=== PATIENT | female | born 1955 | race Caucasian/White ===

== ENCOUNTER 2020-07-25 07:06 | Inpatient (IN) | payer OTHER ==
[~2020-07-25] VITALS: Ht 167.6 cm; Wt 122.0 kg
[~2020-07-25 07:06] MED LIST: ALLO300; DULO60; FURO80; GABA300; GLYB1.5; LIRA0.6P; METF500C; PROP80ER PO; SIMV40
[2020-07-25 07:45] LABS: Calcium, Ionized (POC) 1.11 mmol/L (1.10-1.46); Chloride (POC) 100 mmol/L (98-108); Creatinine (POC) 1.3 mg/dL (0.6-1.0); Glucose (ISTAT POC) 333 mg/dL (70-99); Hemoglobin (POC) 13.9 g/dL (12.0-16.0); Potassium (POC) 6.1 mmol/L (3.5-5.5); Sodium (POC) 138 mmol/L (135-148); Total CO2 (POC) 22 mmol/L (21-32)
[2020-07-25 07:51] LABS: BASOPHILS ABSOLUTE AUTO 0.05 K/mm3 (0.00-0.23); BASOPHILS PERCENT AUTO 0 % (0-2); EOSINOPHILS ABSOLUTE AUTO 0.22 K/mm3 (0.00-0.68); EOSINOPHILS PERCENT AUTO 1 % (0-6); IMMATURE GRAN ABSOLUTE AUTO 0.14 K/mm3 (0.00-0.10); IMMATURE GRAN PERCENT AUTO 1 % (0-1); LYMPHOCYTES ABSOLUTE AUTO 5.34 K/mm3 (0.84-5.20); LYMPHOCYTES PERCENT AUTO 27 % (21-46); MONOCYTES PERCENT AUTO 4 % (4-13); Mean Corpuscular HGB 31.3 pg (26.0-34.0); Mean Corpuscular HGB Conc 30.8 g/dL (31.5-36.5); Mean Corpuscular Volume 102 fL (80-100); Mean Platelet Volume 11.5 fL (9.1-12.4); NEUTROPHILS ABSOLUTE AUTO 13.66 K/mm3 (1.96-9.15); NEUTROPHILS PERCENT AUTO 68 % (41-73); NRBC ABSOLUTE 0.02 K/mm3 (0.00-0.02); NRBC Auto 0.1 /100 WBC (0.0-0.2); Platelet Count 272 K/mm3 (150-400); RDW Coefficient Variation 14.6 % (11.7-14.2); Red Blood Cell Count 3.83 M/mm3 (3.80-5.20); White Blood Cell Count 20.11 K/mm3 (4.00-11.30)
[2020-07-25 08:19] LABS: Albumin, Blood 3.4 g/dL (3.4-5.0); Albumin/Globulin Ratio 0.7 (0.8-1.8); Bilirubin, Total 0.5 mg/dL (0.1-1.0); Bun/Creatinine Ratio 32.5 (12.0-20.0); Calcium, Blood 9.3 mg/dL (8.5-10.1); Creatinine, Blood 1.14 mg/dL (0.40-1.00); Globulin, Blood 4.7 g/dL (2.2-4.0); Potassium, Blood 6.1 mmol/L (3.5-5.5); Total Protein, Blood 8.1 g/dL (6.4-8.2)
[2020-07-25] MEDS ORDERED: OZEMPIC0.25 MG/0. SC (09:06)
[2020-07-25] MEDS ORDERED: CYCL10 PO (09:10)
[2020-07-25 14:17] LABS: Bun/Creatinine Ratio 36.8 (12.0-20.0); Calcium, Blood 8.7 mg/dL (8.5-10.1); Creatinine, Blood 1.25 mg/dL (0.40-1.00); Potassium, Blood 6.2 mmol/L (3.5-5.5)
--- NOTE | 2020-07-25 14:36 | NUR ---
PT TRANSPORTED TO [facility]. UPON ARRIVAL TO DEPARTMENT, RN CALLED US ABOUT CRITICAL POTASSIUM LEVEL. DR. FLORES INFORMED WELL DR. MIN. PROCEDURE POSTPONED UNTIL TOMORROW.
[2020-07-25 16:47] LABS: Source, Urine Clean Catch
[2020-07-25 16:53] LABS: Appearance, Urine Hazy (Clear); Bilirubin, Urine Neg (Neg); Blood, Urine 1+ (Neg); Color, Urine Yellow (P-Yellow); Glucose Qualitative, Urine Neg (Neg); Ketones, Urine 2+ (Neg); Leukocyte Esterase, Urine 3+ (Neg); Nitrite, Urine Neg (Neg); Protein, Urine Neg (Neg); Urobilinogen, Urine NORM (Normal)
[2020-07-25 17:06] LABS: Hematocrit 30.3 % (33.0-51.0); Hemoglobin 9.7 g/dL (11.5-16.0)
[2020-07-25 17:09] LABS: Bacteria Mod /hpf; Red Blood Cells, Urine 0-2 /hpf (0-2); Squamous Epithelial Cells Few /hpf (Few)
--- NOTE | 2020-07-25 17:33 | NUR ---
SHIFT SUMMARY 1225 PT ADMITTED TO 333 VIA GURNEY FROM ER. PT ABLE TO TX SELF TO BED WITH SBA. RECEIVED REPORT FROM JOEY ASCENCIO. PT ADMITTED FOR HEMATEMESIS. REPORTING VOMITING BRIGHT RED BLOOD AND CLOTS SIZE OF HALF DOLLAR. CBG WHEN ADMITTED > THAN 700. PT WITH TYPE II DM AND HTN. PER JOEY, PT ALSO HAD K+ LEVEL @ 6.1; MEDS GIVEN PER EMAR. PT LATER TX TO RM 333. DAY SX TO TO RECEIVE PT SHORTLY AFTER COMING TO MEDICAL FLOOR. WHEN GOING DOWN FOR EGD, LAB CALLED WITH CRITICAL K+ LEVEL @ 6.2. DAY SX NOTIFIED WELL DR MURRAY AND DR PELAYO. NEW ORDERS RECEIVED. PT RETURNED TO AND PROCEDURE DELAYED UNTIL TOMORROW. DR PELAYO HERE TO SEE PT AFTER RETURNING TO . PT INFORMED OF DELAY UNTIL TOMORROW. PT TO HAVE CL DIET TONIGHT AND NPO AFTER MN. MEDS AND TX HAVE BEEN GIVEN PER ORDERS. LAB HERE NOW FOR NEXT K+ LEVEL CK. TELE MX PLACED. RT HERE TO SET UP BIPAP FOR HS. PT UP TO BTHRM ORIGINALLY AND THEN BSC D/T LINES AND TUBING. PT RESTING QUIETLY AT THIS TIME. HAS BEEN ON PHONE OFF AND ON SINCE ADMISSION. CALL LT IN REACH. IVF'S AND PROTONIX DRIP INFUSING PER EMAR.
[2020-07-25 19:06] LABS: Bun/Creatinine Ratio 41.8 (12.0-20.0); Calcium, Blood 9.1 mg/dL (8.5-10.1); Creatinine, Blood 1.34 mg/dL (0.40-1.00); Potassium, Blood 5.8 mmol/L (3.5-5.5)
[2020-07-25 20:40] LABS: Hematocrit 31.1 % (33.0-51.0); Hemoglobin 9.7 g/dL (11.5-16.0)
[2020-07-26 01:05] LABS: Hematocrit 29.5 % (33.0-51.0); Hemoglobin 9.4 g/dL (11.5-16.0); Mean Corpuscular HGB 31.4 pg (26.0-34.0); Mean Corpuscular HGB Conc 31.9 g/dL (31.5-36.5); Mean Corpuscular Volume 99 fL (80-100); Mean Platelet Volume 10.7 fL (9.1-12.4); Platelet Count 240 K/mm3 (150-400); RDW Coefficient Variation 14.5 % (11.7-14.2); RDW Standard Deviation 50.8 fL (35.1-46.3); Red Blood Cell Count 2.99 M/mm3 (3.80-5.20); White Blood Cell Count 21.36 K/mm3 (4.00-11.30)
[2020-07-26 01:26] LABS: Albumin, Blood 3.2 g/dL (3.4-5.0); Albumin/Globulin Ratio 0.8 (0.8-1.8); Bilirubin, Total 0.5 mg/dL (0.1-1.0); Bun/Creatinine Ratio 51.5 (12.0-20.0); Calcium, Blood 9.2 mg/dL (8.5-10.1); Creatinine, Blood 1.36 mg/dL (0.40-1.00); Globulin, Blood 4.1 g/dL (2.2-4.0); Potassium, Blood 4.9 mmol/L (3.5-5.5); Total Protein, Blood 7.3 g/dL (6.4-8.2)
[2020-07-26 03:38] LABS: Hematocrit 27.8 % (33.0-51.0); Hemoglobin 8.8 g/dL (11.5-16.0)
--- NOTE | 2020-07-26 04:55 | NUR ---
WELDING ROD COATER SUMMARY PT HAS HAD CONTINUOUS LOOSE BLACK STOOLS THROUGHOUT THE NIGHT W ONLY ONE EPISODE OF EMESIS WHICH HAD MULTIPLE DARK BLOOD CLOTS IN IT. PT'S HBG WAS CHECKED AT 0130 AND WAS 9.4 HOWEVER A STAT H&H WAS ORDERED AFTER THE PROVIDER WAS CONTACTED DUE TO THE PT HAVING SEVERAL LARGE TARRY STOOLS IN 2 HOUR PERIOD. THE STAT H&H SHOWED A HGB OF 8.8. PT PLACED ON 1L NC AFTER O2 SATS WOULD NOT REMAIN >90 WHILE SHE WAS SLEEPING. PT IS VERY EMBARRESSED ABOUT HER INCONTINENCE AND WAS REASSURED IT IS A NORMAL PART OF HER DIAGNOSIS. PT IS CURRENTLY SLEEPING W CALL LIGHT WITHIN REACH.
--- NOTE | 2020-07-26 09:59 | NUR ---
PT TO SDS. AGREES WITH PLANNED PROCEDURE. PT SLEEPY. WAKES TO VOICE. ANSWERS APPROPRIATLY. C/O CHRONIC BACK PAIN.
--- NOTE | 2020-07-26 11:51 | NUR ---
07/26/20 1151 Jose Cruz Ta Bite Block PlacedSee Anesthesia record. Patient to ENDO 1. History, Chart, Medications and Allergies reviewed before start of procedure. MONITOR INTACT WITH CONTINUOUS PULSE OXIMETRY AND INTERMITTENT BP. O2 VIA N/C INTACT THROUGHOUT SEDATION/PROCEDURE.
--- NOTE | 2020-07-26 17:37 | NUR ---
PATIENT IS ALERT AND ORIENTED AND COOPERATIVE WITH CARE. DR. PELAYO PERFORMED AN EGD ON THE PATIENT THIS MORNING AND FOUND 2 ULCERS AND A GASTRIC POLYP WHICH WAS CLIPPED. THE PATIENT'S POST-OP VITALS ARE WNL. THE PATIENT IS UP TO THE BSC WITH 1PA. THE PATIENT'S WAS AT THE BEDSIDE FOR MOST OF THE DAY. DR. PELAYO INSTRUCTED THE PATIENT TO NOT TAKE NSAIDS. SHE IS TOLERATING A FULL LIQUID DIET WELL. WILL CONTINUE TO MONITOR
--- NOTE | 2020-07-27 04:08 | NUR ---
WIRE BASKET MAKER SUMMARY PT APPEARS TO BE DRAMATICALLY BETTER TONIGHT COMPARED TO PREVIOUS NIGHT SHE IS STRONGER ON HER FEET AND HAS HAD LESS NAUSEA AND ONLY TWO SMALL BOWEL MOVEMENTS THIS SHIFT. PT HAS SLEPT MOST OF THE NIGHT AND IS RESTING COMFORTABLY IN BED WITH CALL LIGHT WITHIN REACH.
[2020-07-27 05:07] LABS: BASOPHILS ABSOLUTE AUTO 0.03 K/mm3 (0.00-0.23); BASOPHILS PERCENT AUTO 0 % (0-2); EOSINOPHILS PERCENT AUTO 2 % (0-6); Hematocrit 25.3 % (33.0-51.0); Hemoglobin 7.7 g/dL (11.5-16.0); IMMATURE GRAN ABSOLUTE AUTO 0.02 K/mm3 (0.00-0.10); IMMATURE GRAN PERCENT AUTO 0 % (0-1); LYMPHOCYTES ABSOLUTE AUTO 4.78 K/mm3 (0.84-5.20); LYMPHOCYTES PERCENT AUTO 47 % (21-46); MONOCYTES ABSOLUTE AUTO 0.81 K/mm3 (0.16-1.47); MONOCYTES PERCENT AUTO 8 % (4-13); Mean Corpuscular HGB 31.3 pg (26.0-34.0); Mean Corpuscular HGB Conc 30.4 g/dL (31.5-36.5); Mean Corpuscular Volume 103 fL (80-100); Mean Platelet Volume 10.8 fL (9.1-12.4); NEUTROPHILS ABSOLUTE AUTO 4.35 K/mm3 (1.96-9.15); NEUTROPHILS PERCENT AUTO 43 % (41-73); Platelet Count 147 K/mm3 (150-400); RDW Standard Deviation 55.5 fL (35.1-46.3); Red Blood Cell Count 2.46 M/mm3 (3.80-5.20); White Blood Cell Count 10.19 K/mm3 (4.00-11.30)
[2020-07-27 05:35] LABS: Bun/Creatinine Ratio 42.1 (12.0-20.0); Potassium, Blood 4.3 mmol/L (3.5-5.5)
--- NOTE | 2020-07-27 07:57 | NUR ---
Pt gave this student nurse permission to provide care for on 07/27/2020.
[2020-07-27 11:16] LABS: Hematocrit 24.8 % (33.0-51.0); Hemoglobin 7.5 g/dL (11.5-16.0)
[2020-07-27] MEDS ORDERED: OMEP20ER PO (13:11)
[2020-07-27] MEDS ORDERED: FERRIC X-150150 M1 PO (13:12)
--- NOTE | 2020-07-27 14:45 | NUR ---
PT DISCHARGED PT DISCHARGED AT 1416. PT & EDUCATED ON NEW MEDS AND DC INSTRUCTIONS. PT INSTRUCTED TO HAVE FOLLOW UP LAB WORK COMPLETED IN 1-2 DAYS. BOTH STATED THEY UNDERSTOOD. PT WHEELED OUT BY VOLUNTEER AND DRIVED HOME BY FAMILY. NO CHANGES IN ASSESSMENT PRIOR TO DC.
== END 2020-07-27 14:16 | disposition home or self-care (01) | DRG 378 ==
LOC: ER 07:06 → MEDS 07:07 → ENPENDDIS 07-27 12:48 → MEDS 07-27 14:16
PROVIDERS: Emergency Medicine; Family Medicine; Hospitalist; Internal Medicine; Nurse Practitioner Acute Care; Student in an Organized Health Care Education/Training Program; ADMIT Hospitalist
PROC: 0DB68ZX Excision of Stomach, Via Natural or Artificial Opening Endoscopic, Diagnostic (ICD-10-PCS; principal; 2020-07-26 10:00)
PROC: 0W3P8ZZ Control Bleeding in Gastrointestinal Tract, Via Natural or Artificial Opening Endoscopic (ICD-10-PCS; 2020-07-26 10:00)
DX: K25.4 Chronic or unspecified gastric ulcer with hemorrhage (principal); Z68.41 Body mass index [BMI] 40.0-44.9, adult; E66.2 Morbid (severe) obesity with alveolar hypoventilation; R65.10 Systemic inflammatory response syndrome (SIRS) of non-infectious origin without acute organ dysfunction; D62 Acute posthemorrhagic anemia; Z79.84 Long term (current) use of oral hypoglycemic drugs; I10 Essential (primary) hypertension; E87.5 Hyperkalemia; Z98.84 Bariatric surgery status; E11.22 Type 2 diabetes mellitus with diabetic chronic kidney disease; J45.909 Unspecified asthma, uncomplicated; M54.9 Dorsalgia, unspecified; K44.9 Diaphragmatic hernia without obstruction or gangrene; Z66 Do not resuscitate; F32.9 Major depressive disorder, single episode, unspecified
CPT/HCPCS: 36415; 71045; 80047; 80048; 80053; 81001; 82947; 83880; 84484; 85014; 85018; 85025; 85027; 86850; 86900; 86901; 87077; 87086; 87186; 88305; 88341; 88342; 93005; 93010; 94660; 94762; 96374; 96375; 99285-25; A9270; A9270-GY; C9113; G0378; J0610; J1815; J1940; J2405; J2704; J7030; J7040; J7120; U0003

== ENCOUNTER 2020-07-31 02:01 | Day surgery (SDC) | payer OTHER ==
[~2020-07-31 02:01] MED LIST changes: +CYCL10 PO; +FERRIC X-150150 M1 PO; +OMEP20ER PO; +OZEMPIC0.25 MG/0. SC
[2020-07-31 12:32] LABS: Hematocrit 30.1 % (33.0-51.0); Hemoglobin 9.5 g/dL (11.5-16.0); Mean Corpuscular HGB 30.7 pg (26.0-34.0); Mean Corpuscular HGB Conc 31.6 g/dL (31.5-36.5); Mean Corpuscular Volume 97 fL (80-100); Mean Platelet Volume 10.1 fL (9.1-12.4); NRBC ABSOLUTE 0.12 K/mm3 (0.00-0.02); NRBC Auto 1.2 /100 WBC (0.0-0.2); Platelet Count 234 K/mm3 (150-400); RDW Coefficient Variation 17.5 % (11.7-14.2); RDW Standard Deviation 57.5 fL (35.1-46.3); Red Blood Cell Count 3.09 M/mm3 (3.80-5.20); White Blood Cell Count 10.09 K/mm3 (4.00-11.30)
== END 2020-07-31 12:25 | disposition home or self-care (01) ==
LOC: ATC 02:01
PROVIDERS: Physician Assistant Medical
DX: D62 Acute posthemorrhagic anemia (principal); E11.42 Type 2 diabetes mellitus with diabetic polyneuropathy; M48.061 Spinal stenosis, lumbar region without neurogenic claudication; E11.65 Type 2 diabetes mellitus with hyperglycemia; G89.4 Chronic pain syndrome; F32.9 Major depressive disorder, single episode, unspecified; M25.9 Joint disorder, unspecified; I10 Essential (primary) hypertension; G58.9 Mononeuropathy, unspecified; Z88.5 Allergy status to narcotic agent; Z79.899 Other long term (current) drug therapy; Z79.84 Long term (current) use of oral hypoglycemic drugs
CPT/HCPCS: 36415; 36430; 85027; 86850; 86900; 86901; 86923; P9016

== ENCOUNTER 2020-10-20 11:14 | Day surgery (SDC) | payer OTHER, SELFPAY ==
[~2020-10-20] VITALS: Ht 167.6 cm; Wt 121.7 kg
[2020-10-20] MEDS ORDERED: VICTOZA 2-0.6 MG/0.1 (11:39)
[2020-10-20] MEDS ORDERED: CODACE30 (11:39)
--- NOTE | 2020-10-20 11:52 | NUR ---
10/20/20 Rebekah Frost 1 TRY RIGHT HAND VALVE
== END 2020-10-20 13:10 | disposition home or self-care (01) ==
LOC: ORSCSDS 11:14
PROVIDERS: Student in an Organized Health Care Education/Training Program
PROC: 0DB58ZX Excision of Esophagus, Via Natural or Artificial Opening Endoscopic, Diagnostic (ICD-10-PCS; principal; 2020-10-20 12:15)
PROC: 0DB68ZX Excision of Stomach, Via Natural or Artificial Opening Endoscopic, Diagnostic (ICD-10-PCS; principal; 2020-10-20 12:15)
DX: Z87.11 Personal history of peptic ulcer disease (principal); K29.70 Gastritis, unspecified, without bleeding; K44.9 Diaphragmatic hernia without obstruction or gangrene; I10 Essential (primary) hypertension; G47.33 Obstructive sleep apnea (adult) (pediatric); E66.01 Morbid (severe) obesity due to excess calories; Z68.39 Body mass index [BMI] 39.0-39.9, adult; E11.9 Type 2 diabetes mellitus without complications; Z79.899 Other long term (current) drug therapy
CPT/HCPCS: 82947; 88305; 88341; 88342; J2704

== ENCOUNTER 2023-08-30 15:06 | Emergency (ER) | payer OTHER ==
[~2023-08-30] VITALS: Ht 167.6 cm; Wt 137.0 kg
[~2023-08-30 15:06] MED LIST changes: +CODACE30; +VICTOZA 2-0.6 MG/0.1
[2023-08-30 16:18] LABS: BASOPHILS ABSOLUTE AUTO 0.01 K/mm3 (0.00-0.23); BASOPHILS PERCENT AUTO 0 % (0-2); EOSINOPHILS ABSOLUTE AUTO 0.01 K/mm3 (0.00-0.68); EOSINOPHILS PERCENT AUTO 0 % (0-6); Hematocrit 43.2 % (33.0-51.0); Hemoglobin 14.1 g/dL (11.5-16.0); IMMATURE GRAN ABSOLUTE AUTO 0.01 K/mm3 (0.00-0.10); IMMATURE GRAN PERCENT AUTO 0 % (0-1); LYMPHOCYTES ABSOLUTE AUTO 1.37 K/mm3 (0.84-5.20); LYMPHOCYTES PERCENT AUTO 36 % (21-46); MONOCYTES ABSOLUTE AUTO 0.42 K/mm3 (0.16-1.47); MONOCYTES PERCENT AUTO 11 % (4-13); Mean Corpuscular HGB Conc 32.6 g/dL (31.5-36.5); Mean Corpuscular Volume 98 fL (80-100); Mean Platelet Volume 11.2 fL (9.1-12.4); NEUTROPHILS ABSOLUTE AUTO 2.02 K/mm3 (1.96-9.15); NEUTROPHILS PERCENT AUTO 53 % (41-73); Platelet Count 89 K/mm3 (150-400); RDW Coefficient Variation 14.3 % (11.7-14.2); RDW Standard Deviation 51.8 fL (35.1-46.3); White Blood Cell Count 3.84 K/mm3 (4.00-11.30)
[2023-08-30] MEDS ORDERED: FURO80 PO (17:10)
[2023-08-30] MEDS ORDERED: TOUJEO SOL300 UNIT/2 SQ (17:10)
[2023-08-30] MEDS ORDERED: POTA10T (17:11)
[2023-08-30] MEDS ORDERED: Simvastatin40 MG PO (17:11)
[2023-08-30] MEDS ORDERED: PANTOPRAZOLE SO40 M2 PO (17:11)
[2023-08-30 17:36] LABS: Albumin/Globulin Ratio 0.7 (0.8-1.8); Bilirubin, Total 0.6 mg/dL (0.1-1.0); Calcium, Blood 8.7 mg/dL (8.5-10.1); Creatinine, Blood 0.73 mg/dL (0.40-1.00); Globulin, Blood 4.5 g/dL (2.2-4.0); Potassium, Blood 4.3 mmol/L (3.5-5.5); Total Protein, Blood 7.5 g/dL (6.4-8.2)
[2023-08-30 18:49] LABS: Source, Urine Clean Catch
[2023-08-30 18:51] LABS: Appearance, Urine Clear (Clear); Bilirubin, Urine Neg (Neg); Blood, Urine 1+ (Neg); Color, Urine Yellow (P-Yellow); Glucose Qualitative, Urine Neg (Neg); Ketones, Urine Neg (Neg); Leukocyte Esterase, Urine Neg (Neg); Nitrite, Urine Neg (Neg); Protein, Urine 1+ (Neg); Urobilinogen, Urine 1+ (Normal)
[2023-08-30 19:06] LABS: Bacteria Rare /hpf; Red Blood Cells, Urine 0-2 /hpf (0-2); Squamous Epithelial Cells Rare /hpf (Few); White Blood Cells, Urine 0-2 /hpf (0-5)
[2023-08-30 19:25] LABS: Influenza A, PCR NEGATIVE (NEGATIVE); Influenza B, PCR NEGATIVE (NEGATIVE); Resp Syncytial Virus, PCR NEGATIVE (NEGATIVE)
[2023-08-30 19:40] LABS: SARS-Cov-2 (COVID-19) PCR, MMC POSITIVE (NEGATIVE)
[2023-08-30 20:22] LABS: Base Excess Venous 1.3 mmol/L; Bicarbonate Venous 25.9 mmol/L (24.0-30.0); PCO2 Venous 35.3 mmHg (38-42); pH Blood Venous 7.46 (7.34-7.37)
[2023-08-30 21:00] VITALS: BP 140/79
== END 2023-08-30 21:39 | disposition home or self-care (01) ==
LOC: ER 15:06
PROVIDERS: Emergency Medicine; Student in an Organized Health Care Education/Training Program
DX: U07.1 COVID-19 (principal); W18.30XA Fall on same level, unspecified, initial encounter; Z88.5 Allergy status to narcotic agent; Z88.8 Allergy status to other drugs, medicaments and biological substances; Z79.899 Other long term (current) drug therapy; Z79.4 Long term (current) use of insulin; G47.30 Sleep apnea, unspecified; J45.909 Unspecified asthma, uncomplicated; I10 Essential (primary) hypertension; E11.9 Type 2 diabetes mellitus without complications
CPT/HCPCS: 0241U; 71046; 72100; 80053; 81001; 82803; 83735; 83880; 84484; 85025; 93005; 93010; 96374; 99284-25; A9270; J1885

== ENCOUNTER 2024-04-14 14:47 | Emergency (ER) | payer OTHER ==
[~2024-04-14] VITALS: Ht 167.6 cm; Wt 120.7 kg
[~2024-04-14 14:47] MED LIST changes: +FURO80 PO; +PANTOPRAZOLE SO40 M2 PO; +POTA10T; +Simvastatin40 MG PO; +TOUJEO SOL300 UNIT/2 SQ
[2024-04-14] MEDS ORDERED: IBUP200 (15:16)
[2024-04-14] MEDS ORDERED: ACET325 (15:16)
[2024-04-14 17:59] VITALS: BP 176/94
[2024-04-14] MEDS ORDERED: RX Prepack 6 Tabs Oxycodone 5mg UD ONE (19:20)
== END 2024-04-14 20:35 | disposition home or self-care (01) ==
LOC: ER 14:47
DX: M48.56XA Collapsed vertebra, not elsewhere classified, lumbar region, initial encounter for fracture (principal); E11.40 Type 2 diabetes mellitus with diabetic neuropathy, unspecified; I10 Essential (primary) hypertension; J45.909 Unspecified asthma, uncomplicated; G47.30 Sleep apnea, unspecified; Z79.899 Other long term (current) drug therapy; Z88.5 Allergy status to narcotic agent; Z88.8 Allergy status to other drugs, medicaments and biological substances
CPT/HCPCS: 72070; 72100; 99284-25; A9270

== ENCOUNTER 2024-04-22 21:46 | Emergency (ER) | payer OTHER ==
[~2024-04-22] VITALS: Ht 167.6 cm; Wt 118.8 kg
[~2024-04-22 21:46] MED LIST changes: +ACET325; +IBUP200
[2024-04-22] MEDS ORDERED: Pantoprazole Sodium 40 MG in NS 50 ML IV SCH (22:15)
[2024-04-22] MEDS ORDERED: Pantoprazole Sodium 40 MG Injection IV ONE (22:15)
[2024-04-22 22:18] LABS: BASOPHILS ABSOLUTE AUTO 0.03 K/mm3 (0.00-0.23); BASOPHILS PERCENT AUTO 0 % (0-2); EOSINOPHILS ABSOLUTE AUTO 0.16 K/mm3 (0.00-0.68); EOSINOPHILS PERCENT AUTO 2 % (0-6); Hematocrit 33.3 % (33.0-51.0); Hemoglobin 11.1 g/dL (11.5-16.0); IMMATURE GRAN ABSOLUTE AUTO 0.03 K/mm3 (0.00-0.10); IMMATURE GRAN PERCENT AUTO 0 % (0-1); LYMPHOCYTES ABSOLUTE AUTO 3.07 K/mm3 (0.84-5.20); LYMPHOCYTES PERCENT AUTO 29 % (21-46); MONOCYTES ABSOLUTE AUTO 0.79 K/mm3 (0.16-1.47); MONOCYTES PERCENT AUTO 7 % (4-13); Mean Corpuscular HGB 31.6 pg (26.0-34.0); Mean Corpuscular HGB Conc 33.3 g/dL (31.5-36.5); Mean Corpuscular Volume 95 fL (80-100); Mean Platelet Volume 10.2 fL (9.1-12.4); NEUTROPHILS ABSOLUTE AUTO 6.57 K/mm3 (1.96-9.15); NEUTROPHILS PERCENT AUTO 62 % (41-73); Platelet Count 206 K/mm3 (150-400); RDW Coefficient Variation 13.2 % (11.7-14.2); RDW Standard Deviation 45.7 fL (35.1-46.3); Red Blood Cell Count 3.51 M/mm3 (3.80-5.20); White Blood Cell Count 10.65 K/mm3 (4.00-11.30)
[2024-04-22 22:30] LABS: Chloride (POC) 113 mmol/L (98-108); Creatinine (POC) 0.9 mg/dL (0.6-1.0); Glucose (ISTAT POC) 304 mg/dL (70-99); Hemoglobin (POC) 11.2 g/dL (12.0-16.0); Potassium (POC) 4.9 mmol/L (3.5-5.5); Sodium (POC) 144 mmol/L (135-148); Total CO2 (POC) 21 mmol/L (21-32)
[2024-04-22 22:35] LABS: Albumin, Blood 2.5 g/dL (3.4-5.0); Albumin/Globulin Ratio 0.6 (0.8-1.8); Bilirubin, Total 0.6 mg/dL (0.1-1.0); Bun/Creatinine Ratio 42.4 (12.0-20.0); Calcium, Blood 8.5 mg/dL (8.5-10.1); Creatinine, Blood 0.75 mg/dL (0.40-1.00); Globulin, Blood 4.1 g/dL (2.2-4.0); Potassium, Blood 4.7 mmol/L (3.5-5.5); Total Protein, Blood 6.6 g/dL (6.4-8.2)
[2024-04-22] MEDS ORDERED: Albumin (Human) 12.5gm/250ml 250 ML IV ONE (23:00)
[2024-04-22] MEDS ORDERED: Robaxin750 MG (23:03)
[2024-04-22] MEDS ORDERED: HYDROCODONE-AC1 EAC7 PO (23:04)
[2024-04-22] MEDS ORDERED: Albumin (Human) 12.5gm/250ml 250 ML IV SCH (23:05)
[2024-04-22 23:15] VITALS: BP 110/70
[2024-04-22] MEDS ORDERED: NS 1,000 ML IV ONE (23:17)
[2024-04-22] MEDS ORDERED: NS 1,000 ML IV SCH (23:45)
== END 2024-04-23 00:04 | disposition short-term general hospital (02) ==
LOC: ER 21:46
PROVIDERS: Emergency Medicine
DX: K92.2 Gastrointestinal hemorrhage, unspecified (principal); R57.8 Other shock; E11.65 Type 2 diabetes mellitus with hyperglycemia; D62 Acute posthemorrhagic anemia; I10 Essential (primary) hypertension; G47.30 Sleep apnea, unspecified; Z79.899 Other long term (current) drug therapy; Z88.5 Allergy status to narcotic agent; Z88.8 Allergy status to other drugs, medicaments and biological substances
CPT/HCPCS: 36430; 80047; 80053; 85014; 85025; 86850; 86900; 86901; 86923; 93005; 93010; 96365-59; 96366-59; 96368; 99285-25; C9113; J7030; P9016; P9045

== ENCOUNTER 2024-09-10 23:58 | Inpatient (IN) | payer OTHER ==
[~2024-09-10] VITALS: Ht 167.6 cm; Wt 113.0 kg
[~2024-09-10 23:58] MED LIST changes: -ACET325; +ACET325 PO; +HYDROCODONE-AC1 EAC7 PO; +Robaxin750 MG PO; +SENNA LAXATIVE8.6 MG PO
[2024-09-11 00:23] LABS: BASOPHILS ABSOLUTE AUTO 0.05 K/mm3 (0.00-0.23); BASOPHILS PERCENT AUTO 0 % (0-2); EOSINOPHILS ABSOLUTE AUTO 0.27 K/mm3 (0.00-0.68); EOSINOPHILS PERCENT AUTO 2 % (0-6); Hematocrit 45.7 % (33.0-51.0); IMMATURE GRAN ABSOLUTE AUTO 0.05 K/mm3 (0.00-0.10); IMMATURE GRAN PERCENT AUTO 0 % (0-1); LYMPHOCYTES ABSOLUTE AUTO 4.36 K/mm3 (0.84-5.20); LYMPHOCYTES PERCENT AUTO 28 % (21-46); MONOCYTES ABSOLUTE AUTO 1.39 K/mm3 (0.16-1.47); MONOCYTES PERCENT AUTO 9 % (4-13); Mean Corpuscular HGB 27.6 pg (26.0-34.0); Mean Corpuscular HGB Conc 32.8 g/dL (31.5-36.5); Mean Corpuscular Volume 84 fL (80-100); Mean Platelet Volume 10.2 fL (9.1-12.4); NEUTROPHILS ABSOLUTE AUTO 9.41 K/mm3 (1.96-9.15); NEUTROPHILS PERCENT AUTO 61 % (41-73); Platelet Count 173 K/mm3 (150-400); RDW Coefficient Variation 17.2 % (11.7-14.2); RDW Standard Deviation 51.9 fL (35.1-46.3); Red Blood Cell Count 5.43 M/mm3 (3.80-5.20); White Blood Cell Count 15.53 K/mm3 (4.00-11.30)
[2024-09-11 00:41] LABS: Albumin, Blood 2.6 g/dL (3.4-5.0); Albumin/Globulin Ratio 0.6 (0.8-1.8); Bilirubin, Total 0.9 mg/dL (0.1-1.0); Bun/Creatinine Ratio 17.8 (12.0-20.0); Calcium, Blood 9.1 mg/dL (8.5-10.1); Creatinine, Blood 1.01 mg/dL (0.40-1.00); Globulin, Blood 4.6 g/dL (2.2-4.0); Potassium, Blood 3.9 mmol/L (3.5-5.5); Total Protein, Blood 7.2 g/dL (6.4-8.2)
[2024-09-11 01:24] LABS: Influenza A, PCR NEGATIVE (NEGATIVE); Influenza B, PCR NEGATIVE (NEGATIVE); Resp Syncytial Virus, PCR NEGATIVE (NEGATIVE); SARS-Cov-2 (COVID-19) PCR, MMC NEGATIVE (NEGATIVE)
[2024-09-11 03:11] LABS: Source, Urine Straight Cath
[2024-09-11 03:19] LABS: Bilirubin, Urine Neg (Neg); Blood, Urine 5+ (Neg); Glucose Qualitative, Urine 1+ (Neg); Ketones, Urine Neg (Neg); Leukocyte Esterase, Urine 3+ (Neg); Nitrite, Urine Pos (Neg); Protein, Urine 4+ (Neg); Specific Gravity, Urine 1.025 (1.003-1.022); Urobilinogen, Urine 1+ (Normal)
[2024-09-11 03:28] LABS: Appearance, Urine Turbid (Clear); Color, Urine Pale Yellow (P-Yellow)
[2024-09-11 03:33] LABS: Amorphous Light (0-Heavy); Bacteria Many /hpf; Squamous Epithelial Cells Few /hpf (Few); White Blood Cells, Urine TNTC /hpf (0-5)
[2024-09-11] MEDS ORDERED: CefTRIAXone Sodium 1,000 MG in NS 100 ML IV ONE (03:55)
[2024-09-11] MEDS ORDERED: FLU VACC TS2024-25(6MOS UP)/PF 45 MCG/0.5 ML SYRINGE IM ONE (04:25)
[2024-09-11] MEDS ORDERED: Acetaminophen 325 MG TABLET PO PRN (04:30)
[2024-09-11] MEDS ORDERED: Lactated Ringer's 1,000 ML IV SCH (05:00)
[2024-09-11] MEDS ORDERED: Insulin Regular 100 UNIT/ML 10ML Vial SC SCH ×2 (06:00→16:30)
[2024-09-11] MEDS ORDERED: NYSTATIN15 GM TOP (08:01)
[2024-09-11 08:27] VITALS: BP 136/78
[2024-09-11] MEDS ORDERED: Lactobacil 2-S.Thermo-Bifido 1 1 Cap PO SCH (09:00)
[2024-09-11] MEDS ORDERED: DULO60 PO (09:12)
[2024-09-11] MEDS ORDERED: CYCL10 PO (09:13)
[2024-09-11] MEDS ORDERED: CIPR250 PO (09:14)
[2024-09-11 17:19] VITALS: BP 129/81
[2024-09-11] MEDS ORDERED: HYDROcodone 10-APAP 325 TAB PO PRN (17:20)
--- NOTE | 2024-09-11 17:21 | NUR ---
SHIFT SUMMARY PT A&OX4, VSS, LR INFUSING PER ORDER, BEDRIDDEN AT BASELINE, TOLERATING SMALL AMOUNTS OF PO, VOIDING W/ WHEELER IN PLACE, PAIN MANAGED PER EMAR, AND HEATING PAD PROVIDED. CALL LIGHT WITHIN REACH PT ABLE TO MAKE NEEDS KNOWN.
[2024-09-11 19:50] VITALS: BP 146/86
[2024-09-11] MEDS ORDERED: Miconazole Nitrate 2% 85 GM PWD TOP SCH (21:00)
[2024-09-12 03:17] VITALS: BP 129/82
[2024-09-12] MEDS ORDERED: NS 250 ML IV PRN (05:50)
[2024-09-12] MEDS ORDERED: CefTRIAXone Sodium 1,000 MG in NS 100 ML IV SCH (06:00)
--- NOTE | 2024-09-12 06:32 | NUR ---
SHIFT SUMMARY PT A&O X4. WHEELER DRAINING TURBID URINE, IMPROVING DURING THE NIGHT. GUERLINE AREA/INNER THIGHS AND BREAST FOLDS REDENNED- CLEANSED AND MEDICATED POWDER PROVIDED. PT MEDICATED FOR BACK PAIN X2- SEE EMAR. TURNED WITH ASSIST THROUGHOUT THE NIGHT. CPAP ON WHILE ASLEEP. BED IN LOWEST POSITION, CALL LIGHT WITHIN REACH, SIDE RAILS UP X2.
[2024-09-12 07:26] VITALS: BP 158/90
[2024-09-12] MEDS ORDERED: Sennosides 8.6 MG Tab PO PRN (07:45)
[2024-09-12] MEDS ORDERED: Enoxaparin 40 MG/0.4 ML SYR SC SCH (09:00)
[2024-09-12] MEDS ORDERED: DULoxetine HCL 60 MG Capsule DR PO SCH (09:00)
[2024-09-12] MEDS ORDERED: Gabapentin 300 MG Cap PO SCH (09:00)
[2024-09-12] MEDS ORDERED: Pantoprazole Sodium 40 MG Tab PO SCH ×2 (09:00→16:30)
[2024-09-12] MEDS ORDERED: Losartan Potassium 25 MG Tab PO SCH (12:00)
[2024-09-12 12:47] VITALS: BP 149/80
[2024-09-12] MEDS ORDERED: OXYC5 PO (13:19)
--- NOTE | 2024-09-12 14:55 | NUR ---
PATIENT FAMILY MEMBER TO CHARGE STATION ASKING ABOUT REHAB PLACEMENT FOR PATIENT DUE TO INCREASED WEAKNESS AND DECREASED ABILITY TO PARTICIPATE IN ADLs. LET HIM KNOW WE SHOW THAT PATIENT HAS OT/PT EVAL PENDING FOR SNF PLACEMENT. FAMILY MEMBER AND HIS PROVIDE CARE FOR PATIENT AND ARE AFRAID THEY ARE UNABLE TO PROVIDE CARE WITH HER CURRENT CONDITION.
[2024-09-12 15:42] VITALS: BP 147/84
--- NOTE | 2024-09-12 18:08 | NUR ---
SHIFT SUMMARY PT URINE NOW ORANGE IN COLOR W/ MINIMAL SEDIMENT, IMPROVED FROM ADMIT. CHRONIC PAIN MANAGED PER EMAR. NO OTHER ACUTE CHANGES. CALL LIGHT WITHIN REACH AND PT ABLE TO MAKE NEEDS KNOWN.
[2024-09-12 19:57] VITALS: BP 158/91
[2024-09-13 02:13] VITALS: BP 128/71
--- NOTE | 2024-09-13 04:31 | NUR ---
SHIFT SUMMARY PT CONTINUES TO HAVE CHRONIC BACK PAIN WITH SOME SPASMS WITH POSITION CHANGES. MEDICATED PER EMAR. URINE CONTINUES TO CLEAR- ELVER IN COLOR WITH SOME SEDIMENT. SKIN FOLDS EXCORIATED- PANNUS, BREASTS, UNDERARMS, BEHIND KNEES, WELL GUERLINE AREA. MEDICATED POWDER APPLIED. PT SLEPT ON/OFF THROUGH THE NIGHT WITH CPAP IN PLACE. IV ANTIBIOTIC CONTINUES PER EMAR. BED IN LOWEST POSITION, CALL LIGHT WITHIN REACH, SIDE RAILS UP X2.
[2024-09-13 05:06] LABS: Hematocrit 39.7 % (33.0-51.0); Hemoglobin 12.7 g/dL (11.5-16.0); Mean Corpuscular HGB 27.4 pg (26.0-34.0); Mean Corpuscular Volume 86 fL (80-100); Mean Platelet Volume 10.2 fL (9.1-12.4); Platelet Count 160 K/mm3 (150-400); RDW Coefficient Variation 16.6 % (11.7-14.2); RDW Standard Deviation 51.5 fL (35.1-46.3); Red Blood Cell Count 4.64 M/mm3 (3.80-5.20); White Blood Cell Count 7.16 K/mm3 (4.00-11.30)
[2024-09-13 05:31] LABS: Bun/Creatinine Ratio 30.6 (12.0-20.0); Calcium, Blood 9.1 mg/dL (8.5-10.1); Creatinine, Blood 0.59 mg/dL (0.40-1.00); Potassium, Blood 3.5 mmol/L (3.5-5.5)
[2024-09-13 07:16] VITALS: BP 150/71
[2024-09-13] MEDS ORDERED: Fluconazole 100 MG Tab PO SCH (09:00)
[2024-09-13] MEDS ORDERED: GLIP2.5ER PO (11:55)
[2024-09-13] MEDS ORDERED: LOSA50 PO (11:55)
[2024-09-13] MEDS ORDERED: Diflucan200 MG PO (11:55)
[2024-09-13] MEDS ORDERED: MICONAZOLE NIT130 GM TOP (11:57)
[2024-09-13] MEDS ORDERED: VISBIOME 112.51 EACH PO (11:58)
[2024-09-13 15:42] VITALS: BP 133/58
--- NOTE | 2024-09-13 17:11 | NUR ---
NO ACUTE CHANGES, WAITING FOR REHAB FACILITY WITH INSURANCE APPROVAL, PLEASANT TO CARE, WORKED WITH PT/OT, CLEARLY MAKES NEEDS KNOWN, RESISTIVE TO CARE AT TIMES, MEPILEX ON SACRUM CDI AND INTACT, MEDICATED WITH NORCO FOR PAIN, WHEELER CATHEER TO STAY IN WHEN PATIENT DISCHARGED REGARDLESS OF WHERE PATIENT GOES, CALL LIGHT WITH IN REACH, NOT IMPUSIVE, CALL LIGHT WITH IN REACH, WILL RELAY TO PM RN
[2024-09-13 20:20] VITALS: BP 141/70
[2024-09-14 02:18] VITALS: BP 141/69
--- NOTE | 2024-09-14 05:08 | NUR ---
SHIFT SUMMARY PT A&Ox4 AND PLEASANT. PT C/O BACK PAIN THAT IS WORSE WITH REPOSITIONING. MEDICATED PER EMAR AND HEAT PACK AVAILABLE. CPAP USED DURING THE NIGHT. VSS. NO ACUTE CHANGES. BED IN LOWEST POSITION AND CALL LIGHT IN REACH.
[2024-09-14 07:17] VITALS: BP 133/68
[2024-09-14 15:50] VITALS: BP 143/81
--- NOTE | 2024-09-14 16:38 | NUR ---
ALERT AND ORIENTED X4, WAITING FOR INSURANCE APPROVAL FOR TRANSFER TO [facility], CLEARLY MAKES NEEDS KNOWN, NO BM, MEDICATED WITH SENNA, DENIED NEED FOR PAIN MEDS THIS EVENING, REPOSTIONS THROUGH OUT THE DAY, PATIENT HELP ROLL AND REPOSITION, CALL LIGHT WITH IN REACH
[2024-09-14 21:07] VITALS: BP 145/74
[2024-09-15 05:19] VITALS: BP 137/76
--- NOTE | 2024-09-15 06:14 | NUR ---
SHIFT SUMMARY PT A&Ox4. MEDICATED FOR BACK PAIN PER EMAR. VERY PAINFUL WITH REPOSITIONING. PT TEARFUL ONCE DURING GUERLINE CARE STATING THAT SHE FELT LIKE A BABY. EMOTIONAL SUPPORT GIVEN. PT USED CPAP T/O NIGHT. VSS. WHEELER INTACT AND DRAINING TO GAVITY. BED IN LOWEST POSITION AND CALL LIGHT IN REACH.
[2024-09-15 07:00] VITALS: BP 146/73
[2024-09-15] MEDS ORDERED: Cyclobenzaprine HCl 10 MG Tab PO PRN (11:30)
[2024-09-15 15:00] VITALS: BP 149/73
--- NOTE | 2024-09-15 16:28 | NUR ---
no acute changes, clearly makes needs known, possible discharge to [facility] tomorrow once insurance clears, alert and oriented to all, call light with in reach, will relay to pm rn
--- NOTE | 2024-09-15 19:39 | NUR ---
RECEIVED BEDSIDE REPORT FROM DAYSHIFT RN. NO NEEDS AT THIS TIME. CALL LT IN REACH.
--- NOTE | 2024-09-15 21:10 | NUR ---
PT ASLEEP, RESP E/U ON RA. EASILY AWAKENS. TAKES MEDS WHOLE WITH WATER. NO NEEDS AT THIS TIME. CALL LT IN REACH.
[2024-09-15 21:24] VITALS: BP 117/69
--- NOTE | 2024-09-15 23:53 | NUR ---
PAIN MED GIVEN TO PT FOR BACK, BOTTOM AND LEG PAIN. WILL REPOSITION PT AFTER PAIN MED HAS TIME TO BE EFFECTIVE. PT WATCHING A SHOW ON HER PHONE. CALL LT IN REACH.
--- NOTE | 2024-09-16 00:35 | NUR ---
REPOSITIONED, FLOATED ON PILLOWS PER PT REQUEST, NEW SACRAL MEPILEX PLACED. PT PLACED CPAP MASK ON. NO OTHER NEEDS, CALL LT IN REACH.
--- NOTE | 2024-09-16 02:38 | NUR ---
PT RESTING. CPAP IN PLACE. CALL LT IN REACH.
--- NOTE | 2024-09-16 03:47 | NUR ---
SHIFT SUMMARY: ALERT AND ORIENTED. USES CALL LT APPROPRIATELY AND ABLE TO MAKE NEEDS KNOWN. PT STILL CONTINUES TO BE PAINFUL WHEN REPOSITIONING. MEDICATED FOR PAIN PRIOR TO REPOSITIONING. SKIN BREAKDOWN UNDER BREASTS, ABDOMEN AND GROIN AREA ARE IMPROVING WITH THE MEDICATED POWDER. BLE ELEVATED ON PILLOWS. WHEELER IN PLACE AND PATENT. TAKES MEDS WHOLE WITH WATER. ON RA. RECEIVED NORCO FOR PAIN. VSS. AFEBRILE. WILL CONTINUE TO PROVIDE CARE UNTIL SHIFT REPORT TO ONCOMING NURSE. CALL LT IN REACH.
[2024-09-16 04:09] VITALS: BP 133/67
--- NOTE | 2024-09-16 06:00 | NUR ---
PT RESTING COMFORTABLY WITH CPAP IN PLACE. CALL LT IN REACH.
[2024-09-16 07:09] VITALS: BP 130/65
[2024-09-16 15:37] VITALS: BP 147/94
--- NOTE | 2024-09-16 17:59 | NUR ---
SHIFT SUMMARY PT CONT LEVEL OF CARE WITH NO ACUTE CHANGES NOTED. PT NOTED TO BE A&O X4 AND BEDBOUND REQUIRED Q2HR TURNS. REPOSITION NOTED TO CAUSE PT DISCOMFORT. PT NOTED WORK WITH THERAPY THIS SHIFT. PT NOTED TO TAKE PRN PAIN MEDICATION X1 THIS SHIFT WITH EFFECTIVENESS. WHEELER CATH REMAINS IN PLACE AND PATENT.
[2024-09-16 19:48] VITALS: BP 151/90
--- NOTE | 2024-09-17 04:26 | NUR ---
GIS PROGRAMMER SUMMARY: PT A&O X4, MAKES NEEDS KNOWN. MEDICATED X1 WITH TYLENOL PRN PER EMAR FOR HIP / BACK PAIN; EFFECTIVE. PT RESTING COMFORTABLY T/O SHIFT. PT IS BEDBOUND AND TOTAL ASSIST WITH BED MOBILITY AND TOILETING NEEDS. WHEELER CATHETER PATENT; CATH CARE PROVIDED. NOTED EXCORIATION TO LABIA / GUERLINE AREA. MEDICATED POWDER APPLIED ORDERED AND SILVER CLOTH FOR MOISTURE / INFECTION INTERVENTION. PT AWAITING SNF PLACEMENT. WHEELER CATHETER TO REMAIN IN PLACE AT D/C. CALL LIGHT IN REACH.
[2024-09-17 05:32] VITALS: BP 139/70
[2024-09-17 07:06] VITALS: BP 139/97
[2024-09-17 07:07] VITALS: BP 139/97
[2024-09-17] MEDS ORDERED: Polyethylene Glycol 3350 17 gm PO SCH (10:00)
[2024-09-17] MEDS ORDERED: Magnesium Hydroxide Conc 10 ML UDC PO SCH (10:00)
[2024-09-17] MEDS ORDERED: MIRALAX17 GM PO (13:56)
[2024-09-17] MEDS ORDERED: Cyclobenzaprine5 MG PO (13:57)
[2024-09-17] MEDS ORDERED: DOCU100 PO (13:57)
--- NOTE | 2024-09-17 15:50 | NUR ---
PT AWAKE AT START OF SHIFT, WATCHING TV ON PHONE. WHEELER TO GRAVITY, PATENT, DRAINING CL YELLOW. WHEELER CATH TO REMAIN IN AT D/C PER DR CHAVEZ. H/H TO MANAGE AT HOME. PT ABLE TO D/C TO HOME PER ORDERS. LABOR [employer] REPRESENTATIVE ARRANGED TRANSPORT. SLIDE TX TO [facility] FOR TRANSPORT. PT MEDICATED FOR C/O BACK PAIN PRIOR TO D/C HOME. ALL BELONGINGS WENT WITH PT. DAUGHTER NOTIFIED PRIOR TO D/C.
== END 2024-09-17 16:16 | disposition home health service (06) | DRG 698 ==
LOC: ER 23:58 → ERHOLD 23:59 → MEDS 23:59 → ENPENDDIS 09-13 11:20 → MEDS 09-17 16:16
PROVIDERS: Internal Medicine; Student in an Organized Health Care Education/Training Program; ADMIT Student in an Organized Health Care Education/Training Program
DX: T83.518A Infection and inflammatory reaction due to other urinary catheter, initial encounter (principal); A41.9 Sepsis, unspecified organism; G82.50 Quadriplegia, unspecified; G92.8 Other toxic encephalopathy; R65.20 Severe sepsis without septic shock; N30.00 Acute cystitis without hematuria; Z68.42 Body mass index [BMI] 45.0-49.9, adult; Z66 Do not resuscitate; R53.81 Other malaise; E53.8 Deficiency of other specified B group vitamins; G89.29 Other chronic pain; M54.9 Dorsalgia, unspecified; I10 Essential (primary) hypertension; G47.33 Obstructive sleep apnea (adult) (pediatric); J45.909 Unspecified asthma, uncomplicated; E11.65 Type 2 diabetes mellitus with hyperglycemia; M51.369 Other intervertebral disc degeneration, lumbar region without mention of lumbar back pain or lower extremity pain; E88.09 Other disorders of plasma-protein metabolism, not elsewhere classified; E66.813 Obesity, class 3; R82.81 Pyuria; Y84.6 Urinary catheterization as the cause of abnormal reaction of the patient, or of later complication, without mention of misadventure at the time of the procedure; Z74.01 Bed confinement status; Z87.19 Personal history of other diseases of the digestive system; Z98.890 Other specified postprocedural states; Z90.710 Acquired absence of both cervix and uterus; Z90.89 Acquired absence of other organs; Z88.5 Allergy status to narcotic agent; Z88.8 Allergy status to other drugs, medicaments and biological substances; Z79.2 Long term (current) use of antibiotics; Z79.899 Other long term (current) drug therapy; Z79.891 Long term (current) use of opiate analgesic; Z99.89 Dependence on other enabling machines and devices
CPT/HCPCS: 0241U; 36415; 51702; 71045; 80048; 80053; 81001; 82947; 83735; 85025; 85027; 87086; 93005; 93010; 94660; 94762; 96361-59; 96365-59; 96372; 96376; 97110; 97162; 97166; 97530; 97535; 99285-25; A9270; G0378; J0696; J1650; J1815; J7050; J7120

== ENCOUNTER → 2025-02-11 | Outpatient (CLI) | payer OTHER | LOC: LAB 18:09 → LAB SHORT 18:09 | DX: N39.0 Urinary tract infection, site not specified (principal) ==

== ENCOUNTER → 2025-02-21 | Outpatient (CLI) | payer OTHER ==
[~2025-02-21] MED LIST changes: +CIPR250 PO; +Cyclobenzaprine5 MG PO; +DOCU100 PO; +DULO60 PO; +Diflucan200 MG PO; +GLIP2.5ER PO; +LOSA50 PO; +MICONAZOLE NIT130 GM TOP; +MIRALAX17 GM PO; +NYSTATIN15 GM TOP; +OXYC5 PO; +VISBIOME 112.51 EACH PO
[2025-02-21 18:55] LABS: Appearance, Urine Hazy (Clear); Bilirubin, Urine Neg (Neg); Blood, Urine 4+ (Neg); Color, Urine Yellow (P-Yellow); Glucose Qualitative, Urine 3+ (Neg); Ketones, Urine Neg (Neg); Leukocyte Esterase, Urine 2+ (Neg); Nitrite, Urine Neg (Neg); Protein, Urine 3+ (Neg); Urobilinogen, Urine NORM (Normal)
[2025-02-21 19:04] LABS: Bacteria Many /hpf; Hyaline Casts 0-2 /lpf (0-2); Renal Epithelial Rare /hpf (0-Rare); Squamous Epithelial Cells Few /hpf (Few)
== END ==
LOC: LAB 13:30 → LAB SHORT 13:30
PROVIDERS: Physician Assistant Medical
DX: N39.0 Urinary tract infection, site not specified (principal)
CPT/HCPCS: 81001; 87086

== ENCOUNTER 2025-03-10 10:31 | Emergency (ER) | payer OTHER ==
[~2025-03-10] VITALS: Ht 167.6 cm; Wt 112.0 kg
[2025-03-10 13:51] LABS: CORONAVIRUS COVID-19 AG Negative (NEGATIVE); INFLUENZA A AG Negative (NEGATIVE); INFLUENZA B AG Negative (NEGATIVE)
[2025-03-10 14:19] LABS: Source, Urine Foley catheter
[2025-03-10 14:36] LABS: BASOPHILS ABSOLUTE AUTO 0.02 K/mm3 (0.00-0.23); BASOPHILS PERCENT AUTO 0 % (0-2); EOSINOPHILS ABSOLUTE AUTO 0.18 K/mm3 (0.00-0.68); EOSINOPHILS PERCENT AUTO 3 % (0-6); Hematocrit 43.7 % (33.0-51.0); Hemoglobin 14.5 g/dL (11.5-16.0); IMMATURE GRAN ABSOLUTE AUTO 0.02 K/mm3 (0.00-0.10); IMMATURE GRAN PERCENT AUTO 0 % (0-1); LYMPHOCYTES ABSOLUTE AUTO 3.12 K/mm3 (0.84-5.20); LYMPHOCYTES PERCENT AUTO 43 % (21-46); MONOCYTES ABSOLUTE AUTO 0.53 K/mm3 (0.16-1.47); MONOCYTES PERCENT AUTO 7 % (4-13); Mean Corpuscular HGB 29.2 pg (26.0-34.0); Mean Corpuscular HGB Conc 33.2 g/dL (31.5-36.5); Mean Corpuscular Volume 88 fL (80-100); Mean Platelet Volume 10.5 fL (9.1-12.4); NEUTROPHILS ABSOLUTE AUTO 3.39 K/mm3 (1.96-9.15); NEUTROPHILS PERCENT AUTO 47 % (41-73); Platelet Count 150 K/mm3 (150-400); RDW Standard Deviation 41.9 fL (35.1-46.3); Red Blood Cell Count 4.96 M/mm3 (3.80-5.20); White Blood Cell Count 7.26 K/mm3 (4.00-11.30)
[2025-03-10 14:45] LABS: Appearance, Urine Hazy (Clear); Bilirubin, Urine Neg (Neg); Blood, Urine 3+ (Neg); Color, Urine Yellow (P-Yellow); Glucose Qualitative, Urine Neg (Neg); Ketones, Urine Neg (Neg); Leukocyte Esterase, Urine 3+ (Neg); Nitrite, Urine Pos (Neg); Protein, Urine 2+ (Neg); Specific Gravity, Urine 1.015 (1.003-1.022); Urobilinogen, Urine 3+ (Normal)
[2025-03-10 14:54] LABS: Bacteria Many /hpf; Squamous Epithelial Cells Few /hpf (Few); Transitional Epithelial Cells Rare /hpf (0-Rare); White Blood Cells, Urine 25-50 /hpf (0-5)
[2025-03-10 15:00] LABS: Albumin, Blood 3.1 g/dL (3.4-5.0); Albumin/Globulin Ratio 0.8 (0.8-1.8); Bilirubin, Total 0.8 mg/dL (0.1-1.0); Calcium, Blood 8.9 mg/dL (8.5-10.1); Creatinine, Blood 0.58 mg/dL (0.40-1.00); Globulin, Blood 4.1 g/dL (2.2-4.0); Potassium, Blood 4.2 mmol/L (3.5-5.5); Total Protein, Blood 7.2 g/dL (6.4-8.2)
[2025-03-10] MEDS ORDERED: CefTRIAXone Sodium 1,000 MG in NS 50 ML IV ONE (15:30)
[2025-03-10] MEDS ORDERED: CefTRIAXone Sodium 1,000 MG in NS 100 ML IV ONE (15:45)
[2025-03-10] MEDS ORDERED: CEPH500 PO (16:34)
[2025-03-10 16:45] VITALS: BP 122/96
[2025-03-10] MEDS ORDERED: CefTRIAXone 1000 MG Vial IM ONE (16:55)
== END 2025-03-10 19:29 | disposition home or self-care (01) ==
LOC: ER 10:31
PROVIDERS: Emergency Medicine
DX: N39.0 Urinary tract infection, site not specified (principal); G47.33 Obstructive sleep apnea (adult) (pediatric); J45.909 Unspecified asthma, uncomplicated; I10 Essential (primary) hypertension; E11.9 Type 2 diabetes mellitus without complications; Z96.0 Presence of urogenital implants; Z79.85 Long-term (current) use of injectable non-insulin antidiabetic drugs; Z79.84 Long term (current) use of oral hypoglycemic drugs; Z79.899 Other long term (current) drug therapy
CPT/HCPCS: 51702; 80053; 81001; 85025; 87077; 87086; 87186; 87428-QW; 96372; 99284-25; J0696

== ENCOUNTER → 2025-04-22 | Outpatient (CLI) | payer OTHER ==
[~2025-04-22] MED LIST changes: +CEPH500 PO
[2025-04-22 18:25] LABS: Source, Urine Clean Catch
[2025-04-22 19:28] LABS: Bilirubin, Urine Neg (Neg); Color, Urine Yellow (P-Yellow); Glucose Qualitative, Urine Neg (Neg); Ketones, Urine 2+ (Neg); Leukocyte Esterase, Urine 2+ (Neg); Protein, Urine 3+ (Neg); Specific Gravity, Urine 1.020 (1.003-1.022); Urobilinogen, Urine NORM (Normal)
[2025-04-22 20:12] LABS: White Blood Cells, Urine TNTC /hpf (0-5)
== END | disposition home or self-care (01) ==
LOC: LAB 18:24 → LAB SHORT 18:24
PROVIDERS: Physician Assistant Medical
DX: N39.0 Urinary tract infection, site not specified (principal)
CPT/HCPCS: 81001; 87077; 87086; 87186

== ENCOUNTER → 2025-08-12 | Outpatient (CLI) | payer OTHER ==
[2025-08-12 17:49] LABS: Bilirubin, Urine Neg (Neg); Color, Urine Yellow (P-Yellow); Glucose Qualitative, Urine 4+ (Neg); Ketones, Urine Neg (Neg); Leukocyte Esterase, Urine 3+ (Neg); Protein, Urine 3+ (Neg); Specific Gravity, Urine 1.015 (1.003-1.022); Urobilinogen, Urine NORM (Normal)
[2025-08-12 18:47] LABS: White Blood Cells, Urine TNTC /hpf (0-5)
== END ==
LOC: LAB SHORT 16:10 → LAB 16:10
PROVIDERS: Physician Assistant Medical
DX: N39.0 Urinary tract infection, site not specified (principal)
CPT/HCPCS: 81001; 87077; 87086; 87186

== ENCOUNTER → 2025-09-03 | Outpatient (CLI) | payer OTHER ==
[2025-09-03 17:56] LABS: Bilirubin, Urine Neg (Neg); Color, Urine Yellow (P-Yellow); Glucose Qualitative, Urine 2+ (Neg); Ketones, Urine Neg (Neg); Leukocyte Esterase, Urine 3+ (Neg); Protein, Urine 3+ (Neg); Specific Gravity, Urine 1.020 (1.003-1.022); Urobilinogen, Urine 2+ (Normal)
[2025-09-03 18:17] LABS: White Blood Cells, Urine 50-100 /hpf (0-5)
== END | disposition home or self-care (01) ==
LOC: LAB SHORT 17:36 → LAB 17:36
PROVIDERS: Physician Assistant Medical
DX: N39.0 Urinary tract infection, site not specified (principal)
CPT/HCPCS: 81001; 87077; 87086; 87186